=== PATIENT | male | born 1975 | race Caucasian/White ===

== ENCOUNTER → 2020-06-02 | Outpatient (CLI) | payer BC ==
[~2020-06-02] VITALS: Ht 188 cm; Wt 111.1 kg
[~2020-06-02] MED LIST: ANDROGEL PO; DIAZEPAM 5 MG5 M1 PO; HYDROCODON-ACE1 EAC5 PO; MAGNESIUM; MELATONIN3 MG PO; MULTIVITAMINS1 EAC7 PO; NABUMETONE 500500 M2 PO; PROGESTERONE PO; ROXICODONE15 M1 PO; ROZEREM 8 MG TAB8 M1 PO; TRAZODONE HCL50 MG PO; VITAMIN B COMP1 EAC7 PO
[2020-06-02 09:44] VITALS: BP 129/106
--- NOTE | 2020-06-02 10:19 | NUR ---
Pain Clinic Assessment: 1. History of Osteoarthritis: RIGHT HIP KNEES History of Rheumatoid Arthritis: Not Applicable 2. Height: 6 ft. 2 in. 188.0 cm. Weight: 245.0 lb. oz. 111.132 kg. Patient's BMI: 31.4 3. Vital Signs: BP: 129/106 Pulse: 108 Resp: 16 Temp: 02 Sat: 100 ECG Mon: 4. Pain Intensity: 9 5. Fall Risk: Dizziness: N Needs help standing or walking: Y Fallen in the last 3 months: N Fall risk comments: 6. Patient on Blood Thinner: None 7. History of Hypertension: N 8. Opioid Therapy greater than 6 weeks: Y Opiate Contract Signed: 9. Risk Assessment Tool Provided: low-1 10. Functional Assessment Tool: 58/70 11. Recreational Drug Use: Never Drug Type: Tobacco Use: Never Smoker Tobacco Type: Amount or Packs/day: How Many Years: Alcohol Use: No Frequency: Quant:
[2020-06-02 10:32] VITALS: BP 118/84
--- NOTE | 2020-06-03 11:27 | HPC ---
[facility] [place] [address] PAIN MANAGEMENT CONSULTATION Name: GEOKENYA SQUIRES Sami Room #: [facility] Sea.#: [id number] Admission: 06/02/20 Attend Phys: Dave Bishop DO Discharge: Date of : 73 Report #: [id number] CC: Justin Hendricks DO, Resident DATE OF SERVICE: 06/02/2020 CHIEF COMPLAINT: Right hip pain. HISTORY OF PRESENT ILLNESS: As you know, the patient is a 44-year-old male with longstanding history of right hip and low back pain. He states that he has been dealing with pain for years on and off, believes it is a combination of multiple injuries that have led to his ongoing symptoms. He had an acute exacerbation of symptoms in 01/2020 when he was lifting a large 12 x 12 seater pole with 2 assistants and they lost hospital tray service worker on the pole and dropped their portion and this led to instantaneous right hip symptoms. They have been present since that time. He has sought evaluation through Orthopedics and they have advised the patient he needs a total hip arthroplasty and plans are for the patient to undergo that procedure in June. The patient reports that he received an intramuscular steroid injection in January by his primary care physician. This was given in the right buttock area, provided no improvement in symptoms. He was advised to begin physical therapy, but has not been able to do so due to COVID restrictions and ongoing pain issues. He sought evaluation through Orthopedics, who indicates that surgery is necessary. Apparently, the patient has been taking long-term opioid medication at excessively high doses. He was given 160 mg of morphine equivalents a day by Dr. Uriel Pierce, but since Dr. Pierce's office was shut down by the federal government due to inappropriate dosing of opioids, he was then left to find other physicians to write for the medications. He has sought treatment from multiple physicians, ultimately being referred to our clinic by Dr. Hendricks for treatment prior to surgery. The patient indicates today pain is continuous, constant throughout the day, but then becomes intermittently and transiently worse. He describes the pain as burning, shooting, cramping, aching, crushing, pulling, throbbing, gnawing and pounding as well as stabbing. He places current pain score 9/10, daily average at 9/10, worst pain has been at 10/10. The patient states that "everything exacerbates his symptoms." States lying down and taking high dose opioid medications tend to improve pain. He has been referred to our service to discuss treatment options for right hip pain, requiring surgery. PAST MEDICAL HISTORY: 1. Degenerative joint disease. 2. Osteoarthritis. PAST SURGICAL HISTORY: 1. Shoulder surgery x2. 2. Multiple dental surgeries. SOCIAL HISTORY: The patient denies tobacco, alcohol, IV or illicit drug use. 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 He is not receiving workmen's compensation nor is he trying to obtain disability benefits. He is not in litigation in regards to pain. He is unaccompanied at today's visit. REVIEW OF SYSTEMS: Positive for weight loss, fatigue, weakness, headaches, earaches with drainage, right hip pain, chronic low back pain. All other review of systems negative per 12-point review of systems other than those listed in history of present illness. Pain impact score 58/70 indicating severe interference of daily activities secondary to pain. ALLERGIES: CLINDAMYCIN. CURRENT MEDICATIONS: Oxycodone 15 mg every 4 hours p.r.n. pain, AndroGel applied topically once a day, trazodone 50 mg one-half tab p.o. daily, progesterone 25 mg per day, Remeron 8 mg once a day. IMAGING: No imaging available. PHYSICAL EXAMINATION: VITAL SIGNS: Blood pressure 129/106, pulse 108, respiratory rate 16 and unlabored. The patient is 100% on room air, height 6 feet 2 inches tall, weight 245 pounds, BMI calculated 31.4. GENERAL: Well-developed, well-nourished, well-hydrated 44-year-old male appearing stated age. He is placing current pain score at 9/10. HEENT: Normocephalic, atraumatic. Pupils equal, round and reactive. NEUROLOGIC: Speech fluent. The patient deemed a fair historian. LUNGS: Appear clear. No wheeze, rhonchi, no rales. CARDIOVASCULAR: Tachycardic. No appreciable gallop, no rub. ABDOMEN: Soft, nontender, nondistended, normal active bowel sounds. EXTREMITIES: Show no clubbing, no cyanosis, and no edema. MUSCULOSKELETAL: The patient is intact. Strength 5/5 involving lower extremities. He has no tenderness to palpation over the lumbar spine. Positive Harpreet's test on the right, negative left. Pain is elicited with standing from a seated position. Ambulation exacerbates symptoms. ASSESSMENT: 1. Right hip osteoarthritis. 2. Labral tear of the right hip. 3. Chronic intractable pain. 4. Opioid dependency. PLAN: 1. The patient has been referred to our service by his orthopedic surgeon to discuss treatment options for ongoing right hip pain that has been present for years with exacerbation of symptoms in January after an incident at work. He has been referred to our clinic to discuss treatment options leading to surgery planned for early June. The patient has been on excessively high opioid medications and we have advised the patient we are not in the practice of offering high dose opioid medications and we would offer no more than 40 morphine equivalents per day and this would only be until the time of surgery. We would not be maintaining those medications prior to that intervention. The patient was referred to our clinic actually to discuss intraarticular hip injections. I do feel this would be of benefit. The patient states he has received an intraarticular hip injection in the past, but this was done with a needle that was only 1-1/2 inches long, which would not have reached of the joint itself given the patient's body size. I believe this was more of just an intramuscular steroid exposure. We recommend a combination of treatments at this point including intraarticular hip injection to be done under fluoroscopic guidance as well as adjustments in medication to a more appropriate level of medication management. The patient has been given excessively high opioid medications at prior pain physician's office, which has been shut down and is being indicted on multiple charges for opioid misuse and prescribing. It is unfortunate that people had to endure this inappropriate treatment and have been left with opioid tolerances not sustainable in current political environment or based on CDC's recommended guidelines. The following was made adjustments in treatment today. 2. The patient will be seen tomorrow to undergo right intraarticular hip injection. I made an appointment at 2 o'clock for the patient to undergo the procedure. He is to show up half hour early to undergo the procedure. The patient was advised of the risks and the benefits of this injection. We will discuss this again tomorrow, but he is agreeable to proceed. This should help improve the patient's pain initially and may give us enough analgesic benefit to reach the surgery timeframe. The patient will be seen tomorrow at 1400 to undergo a right intraarticular hip injection. 3. We have agreed to provide the patient with medication management appropriate for his pathology. The patient is somewhat upset that we are unwilling to provide him with 15 mg oxycodone 4 times to 6 times a day well above the CDCs recommended guidelines. We would be more than willing to provide 40 morphine equivalents a day total, which is more than generous in the light of the pathology that he has currently been experiencing. The fact that he is opioid tolerant is due to his overuse of opioids in the past and should have been curtailed many, many years ago. We will make the adjustments in medication today. I have given him hydrocodone 10/325 one tab p.o. q. 6 hours p.r.n. for pain. I have given him #120 tablets. The patient was advised to take the medication only as directed. He is not to take more than 1 tablet at a time and no more than total of 4 on a day. There will be no early refills or adjustments in this medication. The patient was advised we will be providing this medication until 1 week prior to his surgery. He is then to come off the medication in preparation for surgery and any post-surgery pain he may be experiencing, this will be handled by his orthopedic surgeon. 4. The patient was provided a prescription of nabumetone 500 mg dose 1 tab p.o. t.i.d. This is the appropriate medication for osteoarthritic pain. This will decrease his inflammation and improve overall pain. I have given him 500 mg tablet 3 times a day. He is to watch for dyspepsia, worsening of blood pressure, lower extremity edema with its use. He will continue to take this medication until prior to surgery. He will then stop the medication after surgery and follow Dr. Hendricks' direction for postoperative pain control. The patient was given a prescription with no refills. 5. We see the patient back in followup visit tomorrow for a right intraarticular hip injection. We will keep you apprised of his response to treatment. We will continue his oral medications, assuming he remains compliant with all treatment options and recommendations. 6. We wish to thank Dr. Hendricks for the opportunity to see the patient in consultation. We will continue to see the patient until prior to surgery, where we will be returning his care to your capable services to undergo surgery and postoperative treatment. <ELECTRONICALLY SIGNED> By: Dave Bishop DO 06/03/20 1127 [id number] Dave Bishop DO /nt
== END ==
LOC: PAIN 06:41
PROVIDERS: ATTEND Anesthesiology Pain Medicine
DX: S73.101D Unspecified sprain of right hip, subsequent encounter (principal); M16.11 Unilateral primary osteoarthritis, right hip; F11.20 Opioid dependence, uncomplicated; G89.29 Other chronic pain; Z88.8 Allergy status to other drugs, medicaments and biological substances; Z79.899 Other long term (current) drug therapy; X58.XXXD Exposure to other specified factors, subsequent encounter